=== PATIENT | female | born 1990 | race Caucasian/White ===

== ENCOUNTER 2018-06-02 13:07 | Observation (INO) ==
[2018-06-02 19:02] LABS: Baso # (Auto) 0.1 th/mm3 (0.0-0.2); Baso % (Auto) 0.7 % (0.0-2.0); Eos # (Auto) 0.3 th/mm3 (0.0-0.4); Eos % (Auto) 2.8 % (0.0-4.0); Hematocrit 38.7 % (35.0-46.0); Hemoglobin 13.4 gm/dL (11.6-15.3); Lymph # (Auto) 2.7 th/mm3 (1.0-4.8); Lymph % (Auto) 24.1 % (9.0-44.0); Mean Corpuscular HGB Conc 34.8 % (32.0-36.0); Mean Corpuscular Hemoglobin 31.2 pg (27.0-34.0); Mean Corpuscular Volume 89.6 fL (80.0-100.0); Mean Platelet Volume 8.5 fL (7.0-11.0); Mono # (Auto) 0.6 th/mm3 (0.0-0.9); Mono % (Auto) 5.4 % (0.0-8.0); Neut # (Auto) 7.6 th/mm3 (1.8-7.7); Platelet Count 359 th/mm3 (150-450); Red Blood Count 4.32 mil/mm3 (4.00-5.30); Red Cell Distribution Width 12.9 % (11.6-17.2); White Blood Count 11.4 th/mm3 (4.0-11.0)
[2018-06-02 19:13] LABS: Prothrombin Time 9.7 sec (9.8-11.6)
--- NOTE | 2018-06-02 19:14 | ED ---
HPI General Chief complaint: Eye Problems Stated complaint: Medical Complaint Time Seen by Provider: 06/02/18 17:21 Source: patient and family Mode of arrival: ambulatory Limitations: no limitations History of Present Illness HPI Narrative: Patient is a 27-year-old female who presents the emergency room for evaluation. Patient reports that for the past month, she has been losing her eyesight. Reports that has been having blurry vision. Patient reports that she has been seeing black dots along with double vision. She followed up with a retinal specialist, Dr. Markham in [facility] who told her that she had papilledema - she was told to follow up with a neurologist as she will need further workup including MRV as well as spinal tap. Patient has been unable to make this follow up appointment, reports that her eyesight is getting worse and she is afraid she is going blind - patient here for evaluation and workup. Patient did have a ct of her head recently which was benign Related Data Home Medications Medication Instructions Recorded Confirmed No Known Home Medications 06/02/18 06/02/18 Allergies Allergy/AdvReac Type Severity Reaction Status Date / Time No Known Allergies Allergy Mild Uncoded 05/20/08 09:14 Review of Systems Except as stated in HPI: all other systems reviewed are negative [facility] Social History Social History Second Hand Smoke Exposure: No Smoking Status: Never smoker How Often Do You Have a Drink Containing Alcohol: Never Recent Travel in [facility] within the Last 8 Weeks: No Recent Out of Country Travel within the Last 8 Weeks: No Immunization History Tetanus Immunization: <5 Years Exam Narrative Exam Narrative: GENERAL: Mild distress SKIN: Focused skin assessment warm/dry. HEAD: Atraumatic. Normocephalic. EYES: Pupils equal and round. No scleral icterus. No injection or drainage. ENT: No nasal bleeding or discharge. Mucous membranes pink and moist. NECK: Trachea midline. No JVD. CARDIOVASCULAR: Regular rate and rhythm. No murmur appreciated. RESPIRATORY: No accessory muscle use. Clear to auscultation. Breath sounds equal bilaterally. GASTROINTESTINAL: Abdomen soft, non-tender, nondistended. Hepatic and splenic margins not palpable. MUSCULOSKELETAL: No obvious deformities. No clubbing. No cyanosis. No edema. NEUROLOGICAL: Awake and alert. No obvious cranial nerve deficits. Motor grossly within normal limits. Normal speech. PSYCHIATRIC: Appropriate mood and affect; insight and judgment normal. Course Initial Documented Vital Signs Temperature 98.0 F 06/02/18 13:10 Pulse Rate 81 06/02/18 13:10 Respiratory Rate 18 06/02/18 13:10 Blood Pressure 135/80 06/02/18 13:10 Pulse Oximetry 99 06/02/18 13:10 Last Documented Vital Signs Temperature 98.0 F 06/02/18 13:10 Pulse Rate 81 06/02/18 13:10 Respiratory Rate 18 06/02/18 13:10 Blood Pressure 135/80 06/02/18 13:10 Pulse Oximetry 99 06/02/18 13:10 Medical Decision Making MDM Narrative Medical decision making narrative: Basic labs ordered, plan to admit patient as she will need a full workup for the vision loss MRV ordered - patient did go down for this study case reviewed with Dr. Hartman who accepts pt to service Medical Records Medical records reviewed: Yes I reviewed the patient's medical records. POC Test Results POC Urine Results: Negative Lab Data Lab results reviewed: Yes I reviewed the patient's lab results. Result diagrams: 06/02/18 18:20 06/02/18 18:20 Lab Results 06/02/18 06/02/18 06/02/18 Range/Units 18:20 18:20 18:20 WBC 11.4 H (4.0-11.0) th/mm3 RBC 4.32 (4.00-5.30) mil/mm3 Hgb 13.4 (11.6-15.3) gm/dL Hct 38.7 (35.0-46.0) % MCV 89.6 (80.0-100.0) fL MCH 31.2 (27.0-34.0) pg MCHC 34.8 (32.0-36.0) % RDW 12.9 (11.6-17.2) % Plt Count 359 (150-450) th/mm3 MPV 8.5 (7.0-11.0) fL Neut % (Auto) 67.0 (16.0-70.0) % Lymph % (Auto) 24.1 (9.0-44.0) % Toole % (Auto) 5.4 (0.0-8.0) % Eos % (Auto) 2.8 (0.0-4.0) % Baso % (Auto) 0.7 (0.0-2.0) % Neut # (Auto) 7.6 (1.8-7.7) th/mm3 Lymph # (Auto) 2.7 (1.0-4.8) th/mm3 Toole # (Auto) 0.6 (0.0-0.9) th/mm3 Eos # (Auto) 0.3 (0.0-0.4) th/mm3 Baso # (Auto) 0.1 (0.0-0.2) th/mm3 WBC Differential . Differential Comment Auto diff final PT 9.7 L (9.8-11.6) sec INR 1.0 Ratio APTT 28.0 (24.3-30.1) sec Sodium 138 (136-145) meq/L Potassium 3.6 (3.5-5.1) meq/L Chloride 107 (98-107) meq/L Carbon Dioxide 23.5 (21.0-32.0) meq/L Anion Gap 8 (5-15) meq/L BUN 10 (7-18) mg/dL Creatinine 0.94 (0.50-1.00) mg/dL Estimated GFR 72 L (>89) mL/min Random Glucose 127 H (74-106) mg/dL Calcium 8.8 (8.5-10.1) mg/dL Total Bilirubin 0.2 (0.2-1.0) mg/dL AST 10 L (15-37) U/L ALT 20 (10-53) U/L Alkaline Phosphatase 62 (45-117) U/L Total Protein 7.8 (6.4-8.2) g/dL Albumin 3.6 (3.4-5.0) g/dL Discharge Plan Discharge Disposition Patient Disposition: 30 Still Patient Physicians Team ED Provider: Rica Mejia Primary Care Provider: UNKNOWN, Rxs /Orders / Referrals /Forms Prescriptions: No Action No Known Home Medications RF: 0 Status ED Status: With Doctor
[2018-06-02 19:17] LABS: Albumin 3.6 g/dL (3.4-5.0); Anion Gap 8 meq/L (5-15); Aspartate Aminotransferase 10 U/L (15-37); Blood Urea Nitrogen 10 mg/dL (7-18); Calcium 8.8 mg/dL (8.5-10.1); Carbon Dioxide 23.5 meq/L (21.0-32.0); Chloride 107 meq/L (98-107); Glomerular Filtration Rate 72 mL/min (>89); Glucose,Random 127 mg/dL (74-106); Potassium 3.6 meq/L (3.5-5.1); Sodium 138 meq/L (136-145)
[2018-06-02 19:18] LABS: Alanine Aminotransferase 20 U/L (10-53)
[2018-06-02 19:21] LABS: Alkaline Phosphatase 62 U/L (45-117); Total Protein 7.8 g/dL (6.4-8.2)
[2018-06-02] MEDS ORDERED: Gadobutrol PF 10 MMOL/10 ML Vial (for RAD) IV.SIG ONE (20:18)
--- NOTE | 2018-06-02 21:03 | MR ---
EXAM DATE: 06/02/2018 8:59 PM EDT AGE/SEX: 27 years / Female INDICATIONS: . Visual Disturbance with headaches, possible papilledema. CLINICAL DATA: This is the patient's initial encounter. Patient reports that signs and symptoms have been present for 1 month and indicates a pain score of 5/10. MEDICAL/SURGICAL HISTORY: None. None. COMPARISON: No prior exams available for comparison. TECHNIQUE: MR cerebral venography is performed without and with 10 ml Gadavist (gadobutrol) contrast (single exam dose). Source images, 3D volume MIP, and sliding thin slab MIP reconstructions were re viewed. FINDINGS: There is excellent visualization of the major intracranial dural sinuses. There is no evidence for o cclusion CONCLUSION: The dural venous sinuses appear patent. Electronically signed by: Korey Fan MD 06/02/2018 9:01 PM EDT
--- NOTE | 2018-06-02 22:11 | P.HP ---
History of Present Illness Service: [facility] Primary Care Physician: UNKNOWN History of Present Illness: 27-year-old female with a past medical history significant for newly diagnosed presents to the emergency department. The patient had the worst headache of her life for approximately 3 days 1 month ago. She states that double vision followed. She reports that she has had blurry and double vision that is worsening since that time. She went to the eye doctor who referred her to a retinal specialist. The retinal specialist diagnosed her with papilledema and recommended that she see a neurologist, have an LP and an MRV. The patient was unable to follow with a neurologist given the wait times for an appointment. She is concerned because her symptoms are worsening. She states she now has double vision with black spots and is afraid she is going blind. Head CT done approximately 1 week ago was negative for acute process. MRV done here at [place] negative. She denies any other symptoms. No headaches at this time. Positive nausea. No chest pain or shortness of breath. No emesis or diarrhea. No abdominal pain. No lateralizing signs/symptoms. No fever/chills. Review of Systems All other systems reviewed negative except as stated in HPI PMFSH - History History Provided By: Patient - Medical History Medical History: Medical History (Last Updated 06/02/18 @ 22:05 by Rica Hartman MD) HLD (hyperlipidemia) - Surgical History Surgical History: Surgical History (Last Updated 06/02/18 @ 22:05 by Rica Hartman MD) No history of previous surgery - Family History Family History: Family History (Last Updated 06/02/18 @ 22:06 by Rica Hartman MD) Other No family history of cardiac disease - Tobacco History Second Hand Smoke Exposure: No Smoking Status: Never smoker - Alcohol History How Often Do You Have a Drink Containing Alcohol: Never - Travel History Recent Travel in the [place] Within the Last 8 Weeks: No Recent Travel Out of the Country Within the Last 8 Weeks: No - Immunization History Tetanus Immunization: <5 Years Medications and Allergies Active Medications: Active Medications Acetaminophen (Tylenol) 650 mg PO Q4H PRN PRN Reason: Temp > 100.4 Ondansetron HCl (Zofran Inj) 4 mg IV.PUSH Q6H PRN PRN Reason: NAUSEA OR VOMITING Sodium Chloride (Ns Flush) 2 ml IV.FLUSH PRN PRN PRN Reason: FLUSH AFTER USING IV ACCESS Allergies Allergy/AdvReac Type Severity Reaction Status Date / Time No Known Allergies Allergy Mild Uncoded 05/20/08 09:14 Home Medications Medication Instructions Recorded Confirmed Type No Known Home Medications 06/02/18 06/02/18 History Exam Vital signs: Vital Signs 06/02/18 13:10 Temperature 98.0 F Pulse Rate 81 Respiratory Rate 18 Blood Pressure 135/80 Pulse Oximetry 99 Intake & Output 06/02/18 06/02/18 06/03/18 06:59 18:59 06:59 Weight 88.451 kg Narrative: Gen.: No acute distress Head: Normocephalic. Atraumatic. EENT: Pupils equal round and reactive to light. Nose without drainage. Airway intact. Throat without injection. Cardiovascular: Regular rate and rhythm. No murmurs, rubs or gallops. Respiratory: Lungs clear to auscultation bilaterally. No wheezes or rhonchi. Abdomen: Soft, nontender, nondistended. No peritoneal signs. Musculoskeletal: No gross deformities. No edema. Skin: No obvious rashes or erythema. Neuro: Sensory and motor grossly intact. Cranial nerves II through XII grossly intact. Psych: Appropriate mood and affect Results - Labs CBC & Chem 7: 06/02/18 18:20 06/02/18 18:20 Labs: Laboratory Results - last 24 hr 06/02/18 06/02/18 06/02/18 18:20 18:20 18:20 WBC 11.4 H RBC 4.32 Hgb 13.4 Hct 38.7 MCV 89.6 MCH 31.2 MCHC 34.8 RDW 12.9 Plt Count 359 MPV 8.5 Neut % (Auto) 67.0 Lymph % (Auto) 24.1 Dauphin % (Auto) 5.4 Eos % (Auto) 2.8 Baso % (Auto) 0.7 Neut # (Auto) 7.6 Lymph # (Auto) 2.7 Dauphin # (Auto) 0.6 Eos # (Auto) 0.3 Baso # (Auto) 0.1 WBC Differential . Differential Comment Auto diff final PT 9.7 L INR 1.0 APTT 28.0 Sodium 138 Potassium 3.6 Chloride 107 Carbon Dioxide 23.5 Anion Gap 8 BUN 10 Creatinine 0.94 Estimated GFR 72 L Random Glucose 127 H Calcium 8.8 Total Bilirubin 0.2 AST 10 L ALT 20 Alkaline Phosphatase 62 Total Protein 7.8 Albumin 3.6 - Imaging Impressions Head/Brain Mag Res Venography 06/02/18 19:28 CONCLUSION: The dural venous sinuses appear patent. Caprini VTE Risk Assessment Caprini VTE Risk Assessment: No/Low Risk (score <= 1) Caprini Risk Assessment Model: Point Value = 1 Point Value = 2 Point Value = 3 Point Value = 5 Age 41-60 Minor surgery BMI > 25 kg/m2 Swollen legs Varicose veins or History of unexplained or recurrent spontaneous Oral contraceptives or hormone replacement Sepsis (< 1 month) Serious lung disease, including pneumonia (< 1 month) Abnormal pulmonary function Acute myocardial infarction Congestive heart failure (< 1 month) History of inflammatory bowel disease Medical patient at bed rest Age 61-74 Arthroscopic surgery Major open surgery (> 45 min) Laparoscopic surgery (> 45 min) Malignancy Confined to bed (> 72 hours) Immobilizing plaster cast Central venous access Age >= 75 History of VTE Family history of VTE Factor V Leiden Prothrombin [id number] Lupus anticoagulant Anticardiolipin antibodies Elevated serum homocysteine Heparin-induced thrombocytopenia Other congenital or acquired thrombophilia Stroke (< 1 month) Elective arthroplasty Hip, pelvis, or leg fracture Acute spinal cord injury (< 1 month) Prophylaxis Regimen: Total Risk Factor Score Risk Level Prophylaxis Regimen 0-1 Low Early ambulation 2 Moderate Order ONE of the following: *Sequential Compression Device (SCD) *Heparin 5000 units SQ BID 3-4 Higher Order ONE of the following medications: *Heparin 5000 units SQ TID *Enoxaparin/Lovenox 40 mg SQ daily (WT < 150 kg, CrCl > 30 mL/min) *Enoxaparin/Lovenox 30 mg SQ daily (WT < 150 kg, CrCl > 10-29 mL/min) *Enoxaparin/Lovenox 30 mg SQ BID (WT < 150 kg, CrCl > 30 mL/min) AND/OR *Sequential Compression Device (SCD) 5 or more Highest Order ONE of the following medications: *Heparin 5000 units SQ TID (Preferred with Epidurals) *Enoxaparin/Lovenox 40 mg SQ daily (WT < 150 kg, CrCl > 30 mL/min) *Enoxaparin/Lovenox 30 mg SQ daily (WT < 150 kg, CrCl > 10-29 mL/min) *Enoxaparin/Lovenox 30 mg SQ BID (WT < 150 kg, CrCl > 30 mL/min) AND *Sequential Compression Device (SCD) Assessment and Plan - Plan Assessment/plan: 1. Visual changes Patient has already been evaluated by ophthalmology and a retinal specialist, diagnosed with papilledema MRV negative Head CT negative Neurology consulted, appreciate recommendations 2. Hyperlipidemia Recent diagnosis Has not started medication at this time Follow with primary care FEN N.p.o. Electrolytes: Monitor and replete as needed NS at 100 cc/hour
[2018-06-02] MEDS: Sod Chloride 0.9% Inj 1,000 ML IV.CONT SCH (22:29)
[2018-06-03 08:00] LABS: Baso # (Auto) 0.1 th/mm3 (0.0-0.2); Baso % (Auto) 0.5 % (0.0-2.0); Eos # (Auto) 0.2 th/mm3 (0.0-0.4); Eos % (Auto) 1.4 % (0.0-4.0); Hematocrit 35.3 % (35.0-46.0); Hemoglobin 12.2 gm/dL (11.6-15.3); Lymph # (Auto) 1.8 th/mm3 (1.0-4.8); Lymph % (Auto) 14.6 % (9.0-44.0); Mean Corpuscular HGB Conc 34.5 % (32.0-36.0); Mean Corpuscular Hemoglobin 30.5 pg (27.0-34.0); Mean Corpuscular Volume 88.5 fL (80.0-100.0); Mean Platelet Volume 8.8 fL (7.0-11.0); Mono # (Auto) 0.6 th/mm3 (0.0-0.9); Mono % (Auto) 4.6 % (0.0-8.0); Neut # (Auto) 9.7 th/mm3 (1.8-7.7); Neut % (Auto) 78.9 % (16.0-70.0); Platelet Count 311 th/mm3 (150-450); Red Blood Count 3.99 mil/mm3 (4.00-5.30); Red Cell Distribution Width 12.7 % (11.6-17.2); White Blood Count 12.3 th/mm3 (4.0-11.0)
[2018-06-03 08:21] LABS: Calcium 8.2 mg/dL (8.5-10.1); Carbon Dioxide 24.5 meq/L (21.0-32.0); Potassium 3.8 meq/L (3.5-5.1)
[2018-06-03] MEDS: Sod Chloride 0.9% Inj 1,000 ML IV.CONT SCH ×2 (08:51→21:32)
--- NOTE | 2018-06-03 08:53 | P.PN ---
Subjective Interval history: Follow up for visual changes, papilledema. The patient reports she has a headache today located at the right parietal region, described as 6/10 constant throbbing pains. She reports continued blurred vision, unchanged compared to yesterday. She had 1 episode of nausea with vomiting last night, but no nausea currently. Denies fevers/chills. Denies any other medical complaints at this time. She is visiting from [place], [place]. Physical Exam Vital signs: Vital Signs 06/02/18 13:10 06/02/18 23:48 06/03/18 03:39 Temperature 98.0 F 98.3 F 98.5 F Pulse Rate 81 79 86 Respiratory Rate 18 16 16 Blood Pressure 135/80 153/77 H 101/57 L Pulse Oximetry 99 100 100 06/03/18 07:47 Temperature 99.0 F Pulse Rate 71 Respiratory Rate 14 Blood Pressure 114/56 L Pulse Oximetry 97 Intake & Output 06/02/18 06/03/18 06/03/18 18:59 06:59 18:59 Weight 88.451 kg Other: # Voids 2 Date of Last Bowel Movement 06/01/18 # Emeses 1 Narrative: GENERAL: Well-nourished, well-developed young female patient in [facility]. SKIN: Warm and dry. No rash. HEENT: Normocephalic. Atraumatic. Pupils equal and round. Mucous membranes pink and moist. NECK: Supple. Trachea midline. CARDIOVASCULAR: Regular rate and rhythm. No murmur appreciated. RESPIRATORY: No accessory muscle use. Clear to auscultation. Breath sounds equal bilaterally. GASTROINTESTINAL: Abdomen soft, non-tender, nondistended. Normoactive bowel sounds x4. MUSCULOSKELETAL: No obvious deformities. Extremities without clubbing, cyanosis , or edema. NEUROLOGICAL: Awake and alert. No obvious cranial nerve deficits. Motor grossly within normal limits. Moving all extremities spontaneously. Normal speech. PSYCHIATRIC: Appropriate mood and affect; insight and judgment normal. Results - Labs CBC & Chem 7: 06/03/18 06:07 06/03/18 06:07 Laboratory Results - last 24 hr 06/02/18 06/02/18 06/02/18 18:20 18:20 18:20 WBC 11.4 H RBC 4.32 Hgb 13.4 Hct 38.7 MCV 89.6 MCH 31.2 MCHC 34.8 RDW 12.9 Plt Count 359 MPV 8.5 Neut % (Auto) 67.0 Lymph % (Auto) 24.1 Burke % (Auto) 5.4 Eos % (Auto) 2.8 Baso % (Auto) 0.7 Neut # (Auto) 7.6 Lymph # (Auto) 2.7 Burke # (Auto) 0.6 Eos # (Auto) 0.3 Baso # (Auto) 0.1 WBC Differential . Differential Comment Auto diff final PT 9.7 L INR 1.0 APTT 28.0 Sodium 138 Potassium 3.6 Chloride 107 Carbon Dioxide 23.5 Anion Gap 8 BUN 10 Creatinine 0.94 Estimated GFR 72 L Random Glucose 127 H Calcium 8.8 Total Bilirubin 0.2 AST 10 L ALT 20 Alkaline Phosphatase 62 Total Protein 7.8 Albumin 3.6 06/03/18 06/03/18 06:07 06:07 WBC 12.3 H RBC 3.99 L Hgb 12.2 Hct 35.3 MCV 88.5 MCH 30.5 MCHC 34.5 RDW 12.7 Plt Count 311 MPV 8.8 Neut % (Auto) 78.9 H Lymph % (Auto) 14.6 Burke % (Auto) 4.6 Eos % (Auto) 1.4 Baso % (Auto) 0.5 Neut # (Auto) 9.7 H Lymph # (Auto) 1.8 Burke # (Auto) 0.6 Eos # (Auto) 0.2 Baso # (Auto) 0.1 WBC Differential . Differential Comment Auto diff final PT INR APTT Sodium 142 Potassium 3.8 Chloride 109 H Carbon Dioxide 24.5 Anion Gap 9 BUN 10 Creatinine 0.79 Estimated GFR 88 L Random Glucose 93 Calcium 8.2 L Total Bilirubin AST ALT Alkaline Phosphatase Total Protein Albumin - Imaging Impressions Head/Brain Mag Res Venography 06/02/18 19:28 CONCLUSION: The dural venous sinuses appear patent. Assessment and Plan - Plan 27-year-old female with history of hyperlipidemia, presents with ongoing headache and double vision. Visual changes/Papilledema: Patient has already been evaluated by ophthalmology and a retinal specialist as outpatient, diagnosed with papilledema. Sent to ER for further evaluation. -Outpatient head CT reportedly unremarkable -Brain MRV reviewed and unremarkable -Neurology consulted, appreciate recommendations -Ordered lumbar puncture with opening pressures and CSF studies Hyperlipidemia: Recent diagnosis -Has not started medication at this time -Follow up with primary care DVT Prophylaxis: teds/SCDs; avoid chemoprophylaxis for possible LP Discharge Planning: Await neurology evaluation.
[2018-06-03] MEDS: Acetaminophen 325 MG Tablet PO PRN ×3 (08:54→21:26)
[2018-06-03] MEDS ORDERED: Butalbital/APAP/Caff 50/325/40 MG Tablet PO PRN (15:58)
--- NOTE | 2018-06-03 15:58 | P.CONNEU ---
History of Present Illness Service: Neurology Primary Care Provider: UNKNOWN Family Provider: Juan A Donis MD History of Present Illness: 27-year-old female admitted for further evaluation of papilledema. She lives up in [place] for the past month has been having holocephalic headaches mild photophobia mild diplopia or blurred vision. She saw a retina specialist who diagnosed with bilateral papilledema and suggested further evaluation for intracranial hypertension. She moved down here [facility] to get this further evaluated as her parents live in the area. Denies any excessive vitamin intake any history of excessive her current prednisone use, mild weight gain. Denies any history of lupus, any fevers chills or night sweats. Denies any focal weakness Review of Systems All other systems reviewed negative except as stated in HPI PMFSH - History History Provided By: Patient, Medical Record - Medical History Medical History: Medical History (Last Reviewed 06/02/18 @ 22:33 by Vandana Swann RN) HLD (hyperlipidemia) - Surgical History Surgical History: Surgical History (Last Reviewed 06/02/18 @ 22:33 by Vandana Swann RN) No history of previous surgery - Family History Family History: Family History (Last Reviewed 06/02/18 @ 22:33 by Vandana Swann RN) Other No family history of cardiac disease - Tobacco History Second Hand Smoke Exposure: No Smoking Status: Never smoker - Alcohol History How Often Do You Have a Drink Containing Alcohol: 2 to 3 times a week - Substance Use History Substance History: No History of Abuse - Travel History Recent Travel in the [place] Within the Last 8 Weeks: No Recent Travel Out of the Country Within the Last 8 Weeks: No - Immunization History Tetanus Immunization: <5 Years Medications and Allergies Active Medications: Active Medications Acetaminophen (Tylenol) 650 mg PO Q4H PRN PRN Reason: Temp > 100.4 Last Admin: 06/03/18 15:46 Dose: 650 mg Sodium Chloride (Ns Inj) 1,000 mls @ 100 mls/hr IV.CONT .Q10H SOLEDAD Last Admin: 06/03/18 08:51 Dose: 100 mls/hr Ondansetron HCl (Zofran Inj) 4 mg IV.PUSH Q6H PRN PRN Reason: NAUSEA OR VOMITING Sodium Chloride (Ns Flush) 2 ml IV.FLUSH PRN PRN PRN Reason: FLUSH AFTER USING IV ACCESS Allergies Allergy/AdvReac Type Severity Reaction Status Date / Time No Known Allergies Allergy Unverified 06/02/18 22:33 Home Medications Medication Instructions Recorded Confirmed Type No Known Home Medications 06/02/18 06/02/18 History Exam Vital signs: Vital Signs 06/02/18 23:48 06/03/18 03:39 06/03/18 07:47 Temperature 98.3 F 98.5 F 99.0 F Pulse Rate 79 86 71 Respiratory Rate 16 16 14 Blood Pressure 153/77 H 101/57 L 114/56 L Pulse Oximetry 100 100 97 06/03/18 12:00 06/03/18 15:49 Temperature 98.5 F 97.9 F Pulse Rate 69 84 Respiratory Rate 16 16 Blood Pressure 107/66 116/74 Pulse Oximetry 98 100 Intake & Output 06/02/18 06/03/18 06/03/18 18:59 06:59 18:59 Intake Total 1000 / 1000 Balance 1000 / 1000 Weight 88.451 kg Intake: IV 1000 / 1000 NS Inj 1,000 ML @ 100 mls/hr IV 1000 / 1000 .CONT .Q10H SOLEDAD Rx#:[id number] Other: # Voids 2 Date of Last Bowel Movement 06/01/18 06/01/18 # Emeses 1 Narrative: GENERAL: Well nourished patient, in no apparent distress. SKIN: Warm and dry. HEAD: Atraumatic. Normocephalic. EYES: Pupils equal and round. No scleral icterus. No injection or drainage. ENT: Nose without drainage. NECK: Trachea midline. Neck is supple. CARDIOVASCULAR: Normal rate and regular rhythm without murmurs, RESPIRATORY: Symmetric, unlabored respirations. GASTROINTESTINAL: Abdomen soft, non-tender, non-distended. NEUROLOGICAL: Awake alert oriented 3 fluent articulate no aphasia. Extraocular movements intact no facial asymmetry tongue midline OU 4 3 mm bilaterally visual isaacs grossly full extraocular movements intact no temporal tenderness no nuchal rigidity no facial asymmetry strength 5 out of 5 upper lower limbs muscle bulk and tone gait not assessed secondary fall risk - Constitutional no acute distress - Routine HEENT Exam Head: Present: normocephalic Eye: Present: EOMI Results - Labs CBC & Chem 7: 06/03/18 06:07 06/03/18 06:07 Labs: Laboratory Results - last 24 hr 06/02/18 06/02/18 06/02/18 18:20 18:20 18:20 WBC 11.4 H RBC 4.32 Hgb 13.4 Hct 38.7 MCV 89.6 MCH 31.2 MCHC 34.8 RDW 12.9 Plt Count 359 MPV 8.5 Neut % (Auto) 67.0 Lymph % (Auto) 24.1 Ellis % (Auto) 5.4 Eos % (Auto) 2.8 Baso % (Auto) 0.7 Neut # (Auto) 7.6 Lymph # (Auto) 2.7 Ellis # (Auto) 0.6 Eos # (Auto) 0.3 Baso # (Auto) 0.1 WBC Differential . Differential Comment Auto diff final PT 9.7 L INR 1.0 APTT 28.0 Sodium 138 Potassium 3.6 Chloride 107 Carbon Dioxide 23.5 Anion Gap 8 BUN 10 Creatinine 0.94 Estimated GFR 72 L Random Glucose 127 H Calcium 8.8 Total Bilirubin 0.2 AST 10 L ALT 20 Alkaline Phosphatase 62 Total Protein 7.8 Albumin 3.6 06/03/18 06/03/18 06:07 06:07 WBC 12.3 H RBC 3.99 L Hgb 12.2 Hct 35.3 MCV 88.5 MCH 30.5 MCHC 34.5 RDW 12.7 Plt Count 311 MPV 8.8 Neut % (Auto) 78.9 H Lymph % (Auto) 14.6 Ellis % (Auto) 4.6 Eos % (Auto) 1.4 Baso % (Auto) 0.5 Neut # (Auto) 9.7 H Lymph # (Auto) 1.8 Ellis # (Auto) 0.6 Eos # (Auto) 0.2 Baso # (Auto) 0.1 WBC Differential . Differential Comment Auto diff final PT INR APTT Sodium 142 Potassium 3.8 Chloride 109 H Carbon Dioxide 24.5 Anion Gap 9 BUN 10 Creatinine 0.79 Estimated GFR 88 L Random Glucose 93 Calcium 8.2 L Total Bilirubin AST ALT Alkaline Phosphatase Total Protein Albumin - Imaging Impressions Head/Brain Mag Res Venography 06/02/18 19:28 CONCLUSION: The dural venous sinuses appear patent. Review/Management - Diagnosis (1) Idiopathic intracranial hypertension Code(s): G93.2 - Benign intracranial hypertension Status: Acute Current Visit: Yes - Review/Management Plan: History of OU papilledema, headaches patient is mildly obese Intracranial idiopathic hypertension certainly if feasible MRV brain negative Patient states she has had brain imaging CT head done up in [place] which was negative Recommendations Lumbar puncture with opening pressures Start Diamox. No known history of sulfa allergy She could be further followed up in the outpatient setting after the above is been completed
--- NOTE | 2018-06-03 17:12 | P.RAD ---
Post Procedure Progress Note - Pre Procedure Diagnosis (1) Headache - Post Procedure Diagnosis (1) Headache - Procedure Information Procedure Date: 06/03/18 Supervising Radiologist: Jonsa Alford Jr, MD Estimated blood loss (mL): 0 Anesthesia: Local - Plan of Activity Patient to Unit: Nursing Unit Patient Condition: Good See PACS Report for procedural detail/treatment. Spinal Procedure Lumbar Puncture L4-L5 Fluid Removal (CCs): 11 Fluid Description: Clear Puncture Time: 16:56 Findings: Elevated pressures: Openin cmH20 Closin cmH20 Plan: Supine for 2 hours
[2018-06-03 20:05] LABS: Lymphocytes, CSF 81 %; Monocytes,CSF 16 %; Neutrophils,CSF 3 %
[2018-06-03 20:08] LABS: RBC on Tube 4 25 /mm3
[2018-06-03] MEDS ORDERED: acetaZOLAMIDE 250 MG TABLET PO SCH (21:00)
[2018-06-04 04:26] VITALS: RESP 16
[2018-06-04] MEDS: Sod Chloride 0.9% Inj 1,000 ML IV.CONT SCH ×2 (06:39→09:03)
--- NOTE | 2018-06-04 08:40 | P.PNNEU ---
Subjective Subjective Comments: No acute events reported No headache No chest pain No dyspnea Active Medications: Active Medications Acetaminophen (Tylenol) 650 mg PO Q4H PRN PRN Reason: Temp > 100.4 Last Admin: 06/03/18 21:26 Dose: 650 mg Acetaminophen/Butalbital/Caffeine (Fioricet 50-325-40) 1 tab PO Q8H PRN PRN Reason: HEADACHE Acetazolamide (Diamox) 250 mg PO Q12HR [facility] Last Admin: 06/03/18 21:27 Dose: 250 mg Sodium Chloride (Ns Inj) 1,000 mls @ 100 mls/hr IV.CONT .Q10H [facility] Last Admin: 06/04/18 06:39 Dose: 100 mls/hr Ondansetron HCl (Zofran Inj) 4 mg IV.PUSH Q6H PRN PRN Reason: NAUSEA OR VOMITING Sodium Chloride (Ns Flush) 2 ml IV.FLUSH PRN PRN PRN Reason: FLUSH AFTER USING IV ACCESS Allergies/Adverse Reactions: Allergies Allergy/AdvReac Type Severity Reaction Status Date / Time No Known Allergies Allergy Unverified 06/02/18 22:33 Physical Exam Vital signs: Vital Signs 06/03/18 12:00 06/03/18 15:49 06/03/18 19:45 Temperature 98.5 F 97.9 F 99.1 F Pulse Rate 69 84 86 Respiratory Rate 16 16 16 Blood Pressure 107/66 116/74 113/70 Pulse Oximetry 98 100 99 06/04/18 00:00 06/04/18 04:00 06/04/18 07:39 Temperature 98.7 F 98.9 F 99.0 F Pulse Rate 76 78 66 Respiratory Rate 16 16 16 Blood Pressure 110/57 L 107/58 L 99/57 L Pulse Oximetry 100 98 96 Intake & Output 06/03/18 06/04/18 06/04/18 18:59 06:59 18:59 Intake Total 1999 1000 / 1000 Balance 1999 1000 / 1000 Intake: IV 1999 1000 / 1000 NS Inj 1,000 ML @ 100 mls/hr IV 1999 1000 / 1000 .CONT .Q10H [facility] Rx#:[id number] Other: # Voids 5 Date of Last Bowel Movement 06/02/18 06/02/18 Objective Laboratory Results - last 24 hr 0706/03/18 06/03/18 16:56 16:56 16:56 CSF Volume (1) 3.0 CSF Supernat Color (1) Clear CSF Volume (2) 2.0 CSF Supernat Color (2) Clear CSF Gross Blood (2) 0 CSF Volume (3) 2.0 CSF Supernat Color (3) Clear CSF Volume (4) 4.0 CSF Supernat Color (4) Clear CSF WBC (4) 10 CSF RBC (4) 25 H CSF Neutrophils % 3 CSF Lymphocytes % 81 CSF Monocytes % 16 CSF Glucose 47 CSF Total Protein 31.0 Microbiology 06/03/18 16:56 Gram Stain - Final Lumbar Puncture Review/Management - Diagnosis (1) Idiopathic intracranial hypertension Code(s): G93.2 - Benign intracranial hypertension Status: Acute Current Visit: Yes - Review/Management Plan: Opening pressure 37 which is elevated consistent with intracranial hypertension History of OU papilledema, headaches patient is mildly obese MRV brain negative Patient states she has had brain imaging CT head done up in [place] which was negative Recommendations Diamox Weight reduction She could be further followed up in the outpatient setting after the above is been completed
[2018-06-04] MEDS: Acetaminophen 325 MG Tablet PO PRN (09:32)
--- NOTE | 2018-06-04 10:18 | P.PN ---
Subjective Interval history: Follow up for idiopathic intracranial hypertension, with headaches and visual changes. The patient reports feeling better today. Headache much improved, still feels some head pressure behind the eyes with some mildly blurry vision, overall improved. Had an episode of nausea last night, but none today. She is tolerating oral intake. She has no other medical complaints at this time. Physical Exam Vital signs: Vital Signs 06/03/18 12:00 06/03/18 15:49 06/03/18 19:45 Temperature 98.5 F 97.9 F 99.1 F Pulse Rate 69 84 86 Respiratory Rate 16 16 16 Blood Pressure 107/66 116/74 113/70 Pulse Oximetry 98 100 99 06/04/18 00:00 06/04/18 04:00 06/04/18 07:39 Temperature 98.7 F 98.9 F 99.0 F Pulse Rate 76 78 66 Respiratory Rate 16 16 16 Blood Pressure 110/57 L 107/58 L 99/57 L Pulse Oximetry 100 98 96 06/04/18 08:00 Temperature Pulse Rate Respiratory Rate Blood Pressure 111/71 Pulse Oximetry Intake & Output 06/03/18 06/04/18 06/04/18 18:59 06:59 18:59 Intake Total 1999 1000 / 1000 1000 / 1000 Balance 1999 1000 / 1000 1000 / 1000 Intake: IV 1999 1000 / 1000 1000 / 1000 NS Inj 1,000 ML @ 100 mls/hr IV 1999 1000 / 1000 1000 / 1000 .CONT .Q10H [facility] Rx#:[id number] Other: # Voids 5 Date of Last Bowel Movement 06/02/18 06/02/18 Narrative: GENERAL: Well-nourished, well-developed young female patient in [facility]. SKIN: Warm and dry. No rash. HEENT: Normocephalic. Atraumatic. Pupils equal and round. Mucous membranes pink and moist. NECK: Supple. Trachea midline. CARDIOVASCULAR: Regular rate and rhythm. No murmur appreciated. RESPIRATORY: No accessory muscle use. Clear to auscultation. Breath sounds equal bilaterally. GASTROINTESTINAL: Abdomen soft, non-tender, nondistended. Normoactive bowel sounds x4. MUSCULOSKELETAL: No obvious deformities. Extremities without clubbing, cyanosis , or edema. NEUROLOGICAL: Awake and alert. No obvious cranial nerve deficits. Motor grossly within normal limits. Moving all extremities spontaneously. Normal speech. PSYCHIATRIC: Appropriate mood and affect; insight and judgment normal. Results - Labs CBC & Chem 7: 06/03/18 06:07 06/03/18 06:07 Laboratory Results - last 24 hr 06/03/18 06/03/18 06/03/18 16:56 16:56 16:56 CSF Volume (1) 3.0 CSF Supernat Color (1) Clear CSF Volume (2) 2.0 CSF Supernat Color (2) Clear CSF Gross Blood (2) 0 CSF Volume (3) 2.0 CSF Supernat Color (3) Clear CSF Volume (4) 4.0 CSF Supernat Color (4) Clear CSF WBC (4) 10 CSF RBC (4) 25 H CSF Neutrophils % 3 CSF Lymphocytes % 81 CSF Monocytes % 16 CSF Glucose 47 CSF Total Protein 31.0 Microbiology 06/03/18 16:56 Lumbar Puncture Gram Stain - Final 06/03/18 16:56 Lumbar Puncture CSF Culture - Preliminary No growth in 24 hours Assessment and Plan - Plan 27-year-old female with history of hyperlipidemia, presents with ongoing headache and double vision. Visual changes/Papilledema: Patient has already been evaluated by ophthalmology and a retinal specialist as outpatient, diagnosed with papilledema. Sent to ER for further evaluation. -Outpatient head CT reportedly unremarkable -Brain MRV reviewed and unremarkable -Neurology consulted, appreciate recommendations -Lumbar puncture done 06/03, opening pressure of 37, consistent with intracranial hypertension -Neuro started the patient on Diamox, ok to d/c with outpatient f/up. Patient plans to f/up with neurologist in [place]. -Fioricet prn headache Hyperlipidemia: Recent diagnosis -Has not started medication at this time -Follow up with primary care DVT Prophylaxis: teds/SCDs; patient is ambulatory Discharge Planning: Discharge patient to home Condition on discharge: Stable Regular Diet as tolerated Ad Joleen activity Rx written: Diamox, Fioricet Follow-up with primary care physician and neurologist
[2018-06-04] MEDS ORDERED: acetaZOLAMIDE 250 MG TABLET PO SCH (11:00)
[2018-06-04 11:45] VITALS: BP 103/66; PULSE 76; TEMP 98; O2SAT 99
--- NOTE | 2018-06-05 09:53 | IR ---
EXAM DATE: 06/03/2018 5:24 PM EDT AGE/SEX: 27 years / Female INDICATIONS: Patient with history of headache and double vision in need of lumbar puncture. CLINICAL DATA: This is the patient's initial encounter. Patient reports that signs and symptoms have been present for 1 month and indicates a pain score of 0/10. MEDICAL/SURGICAL HISTORY: Hypercholesterolemia. None. COMPARISON: No prior exams available for comparison. FLUORO TIME (min): 1.3 IMAGE SERIES: 2 ACCESS SITE: L4-5 LUMBAR PUNCTURE TIME: 1656 hours FLUID: Total volume of 11 cc of clear fluid was removed. Fluid was sent to lab for ordered studies. . . PROCEDURE: 1. Fluoroscopic guided lumbar puncture. The risks, benefits and alternatives to the procedure were explained and verbal and written consent w as obtained. The site was prepped in sterile fashion. Full sterile technique was used, including ca p, mask, sterile gloves and gown and a large sterile sheet. Hand hygiene and 2% chlorhexidine and/or betadine/alcohol prep was utilized per protocol for cutaneous antisepsis. The skin and subcutaneous tissues were infiltrated with local anesthetic solution. With fluoroscopic guidance the lumbar thecal sac was punctured at the L4-L5 level. The fluid describ ed above was removed without difficulty. Opening pressure 37 cm of water with closing pressure 23 cm of water. The patient tolerated the procedure well and there were no complications. 1. Uncomplicated fluoroscopically guided lumbar puncture. Elevated CSF pressure. Electronically signed by: Jonas Alford MD 06/05/2018 9:51 AM EDT
== END 2018-06-04 12:59 | disposition home or self-care (01) ==
LOC: NEPGCP 13:07 → NEDA 13:07 → NEPD 13:07 → NEPGCP 22:26
PROVIDERS: ADMIT Internal Medicine; ATTEND Internal Medicine